=== PATIENT | female | born 1980 | race Caucasian/White ===

== ENCOUNTER 2016-12-25 07:40 | Emergency (ER) | payer BC ==
[2016-12-25 07:58] VITALS: BP 117/74
--- NOTE | 2016-12-25 08:42 | UC ---
Complaint Female HPI - HPI Summary HPI Summary: 36 yo female with vaginal d/c and itch ungoing IVF mild dysuria - History Of Current Complaint Chief Complaint: UCGU Stated Complaint: UTI SYMPTOMS Time Seen by Provider: 12/25/16 08:14 Hx Obtained From: Patient Hx Last Menstrual Period: november- going though ivf, transfer done already Onset/Duration: Gradual Onset, Lasting Days Timing: Constant Severity Initially: Mild Severity Currently: Mild Pain Intensity: 1 Pain Scale Used: 0-10 Numeric Character: Not Applicable Aggravating Factor(s): Urination Associated Signs And Symptoms: Positive: Vaginal Discharge - Allergies/Home Medications Allergies/Adverse Reactions: Allergies Allergy/AdvReac Type Severity Reaction Status Date / Time No Known Drug Allergy Allergy Unknown Verified 02/15/16 10:18 Reaction Details Home Medications: Home Medications Aspirin [Aspirin 81 MG TAB] 81 mg PO DAILY 12/25/16 [History Confirmed 12/25/16] Cholecalciferol [Vitamin D] 1,000 PO DAILY 12/25/16 [History] Estradiol [Estrace] 2 mg DAILY 12/25/16 [History Confirmed 12/25/16] Progesterone SUPP (NF) [Endometrin SUPP (NF)] 100 mg DAILY 12/25/16 [History Confirmed 12/25/16] Progesterone* [Progesterone in Oil*] 50 mg DAILY 12/25/16 [History Confirmed ] Tacrolimus CAP(*) [Prograf CAP(*)] 0.5 mg PO DAILY 12/25/16 [History Confirmed 12/25/16] predniSONE TAB* [Deltasone TAB*] 5 mg PO DAILY 12/25/16 [History Confirmed 12/25] PMH/Surg Hx/FS Hx/Imm Hx Previously Healthy: Yes Respiratory History Of: Reports: Bronchitis - Hx OF CHILD NUMEROUS EPISODES GI/ History Of: Denies: Ulcer Neurological History Of: Reports: Migraine - WITH HEAVY EXERCISE, LAST WAS 2015 Psychological History Of: Denies: Anxiety, Depression - Surgical History Surgical History: Yes Surgery Procedure, Year, and Place: 1985 tonsils removedage. 2007 Uvula removed for sleep apnea [place] - Family History Known Family History: Negative: Cardiac Disease, Hypertension, Diabetes - Social History Alcohol Use: None Alcohol Amount: 2-3 glasses wine/beer a week Substance Use Type: None Smoking Status (MU): Never Smoked Tobacco Have You Smoked in the Last Year: No - Immunization History Most Recent Influenza Vaccination: not this year Most Recent Tetanus Shot: UTD Review of Systems Constitutional: Negative Skin: Negative Eyes: Negative ENT: Negative Respiratory: Negative Cardiovascular: Negative Gastrointestinal: Negative Genitourinary: Dysuria, Frequency Motor: Negative Neurovascular: Negative Musculoskeletal: Negative Neurological: Negative Psychological: Negative All Other Systems Reviewed And Are Negative: Yes Physical Exam Triage Information Reviewed: Yes Appearance: Well-Appearing, No Pain Distress, Well-Nourished Vital Signs: Initial Vital Signs Temp 99.4 F 12/25/16 07:52 Pulse 96 12/25/16 07:52 Resp 16 12/25/16 07:52 BP 117/74 12/25/16 07:52 Pulse Ox 98 12/25/16 07:52 Eyes: Positive: Conjunctiva Clear ENT: Positive: Hearing grossly normal. Negative: Nasal congestion, Nasal drainage, Trismus, Muffled/hoarse voice Neck: Positive: Supple, Nontender Respiratory: Positive: Lungs clear, Normal breath sounds, No respiratory distress Cardiovascular: Positive: RRR, No Murmur Abdomen Description: Positive: No Organomegaly, Soft. Negative: CVA Tenderness (R), CVA Tenderness (L) Musculoskeletal: Positive: ROM Intact, No Edema Neurological: Positive: Alert, Muscle Tone Normal Skin Exam: Normal Complaint Female Dx - Differential Dx/Diagnosis Provider Diagnoses: vaginitis Discharge - Discharge Plan Condition: Stable Disposition: HOME Patient Education Materials: Vaginitis (ED) Referrals: Michael Rivas MD [Primary Care Provider] - Additional Instructions: I suspect a yeast infection a urine culture is pending (takes a couple of days) tests on vaginal d/c are pending will hold off on any meds until we get results
--- NOTE | 2016-12-26 17:58 | UC ---
Progress - Progress Note Progress Note: PLEASE CALL Pt AND INFORM HER OF TEST POSITIVE FOR VAGINAL CANDIDIASIS. CLOTRIMAZOLE 1% VAGINAL CREAM, ONE APPLICATOR FULL PER VAGINA INSERTED Q X 7 DAYS SENT. HOWEVER, IT IS VERY IMPORTANT THAT PT FOLLOW UP WITH THE PHYSICIAN WHO PRESCRIBES TACROLIMUS TODAY. TO INFORM THAT PHYSICIAN THAT SHE WAS PRESCRIBED CLOTRIMAZOLE IT CAN LEAD TO DANGEROUS ELEVATION OF BLOOD LEVELS OF TACROLIMUS. IT MAY THEREFORE NEED TO BE MONITORED. THIS WAS DISCUSSED WITH YASMEEN, FROM HER PHARMACY. See Dr. Waters note.
== END 2016-12-25 08:56 | disposition home or self-care (01) ==
LOC: UCEAST 07:40
DX: B37.3 Candidiasis of vulva and vagina (principal)
CPT/HCPCS: 81003; 84702; 87086; 87480; 87510; 87660; 99211; G0463

== ENCOUNTER 2017-08-29 08:38 | Inpatient (IN) | payer BC ==
[~2017-08-29 08:38] MED LIST: Buffered Lidocaine 0.9% SYRIN* 5 ML/SYR SYRINGE INTRADERM ONE; Famotidine IV* 10 MG/ML 2 ML (20 mg) IV ONE
[2017-08-29] MEDS ORDERED: Famotidine IV* 10 MG/ML 2 ML (20 mg) ONE (10:16)
[2017-08-29] MEDS ORDERED: fentaNYL* 50 MCG/ML 2 ML VIAL (100 MCG VIAL) ONE (10:42)
[2017-08-29] MEDS ORDERED: KETAMINE HCL* 50 MG/ML 10 ML VIAL ONE (10:42)
[2017-08-29] MEDS ORDERED: Midazolam* 1 MG/ML 5 ML VIAL (5 MG) ONE (10:42)
[2017-08-29] MEDS ORDERED: Morphine PF AMP (0.5MG/ML)* 5 MG/10 ML AMP ONE (10:42)
[2017-08-29] MEDS ORDERED: ceFAZolin 2 GM PREMIX (*) 2 GM/50 ML BAG IVPB ONE (10:59)
[2017-08-29] MEDS ORDERED: PROCHLORPERAZINE INJ 5 MG/ML 2 ML VIAL IV PRN (11:22)
[2017-08-29] MEDS ORDERED: Scopolamine PATCH Remove* 1 NOTE MISC PATCH OFF PRN (11:22)
[2017-08-29] MEDS ORDERED: oxyCODONE/Acetamin 5/325 MG* TAB PO PRN (11:22)
[2017-08-29] MEDS ORDERED: DiMENhydriNATE IV* 50 MG/ML VIAL IV PUSH PRN (11:22)
[2017-08-29] MEDS ORDERED: diPHENhydraMINE IV* 50 MG/ML 1 ml VIAL (BENADRYL) IV PRN (11:22)
[2017-08-29] MEDS ORDERED: Scopolamine 1.5 mg* PATCH TRANSDERM PRN (11:22)
[2017-08-29] MEDS ORDERED: Ondansetron INJ* 2 MG/ML VIAL IV PRN (11:22)
[2017-08-29] MEDS ORDERED: Naloxone* 2 MG in NS 0.9% 250 ML* 250 ML IV PRN (11:22)
[2017-08-29] MEDS ORDERED: Nalbuphine* 20 MG/ML 1 ML VIAL IV PRN (11:22)
[2017-08-29] MEDS ORDERED: Naloxone* 0.4 MG/ML 1 ML VIAL IV PRN ×2 (11:22→11:24)
[2017-08-29] MEDS ORDERED: fentaNYL* 50 MCG/ML 2 ML VIAL (100 MCG VIAL) IV PRN (11:24)
[2017-08-29] MEDS ORDERED: EPHEDrine (Pressors)* 50 MG/ML VIAL ONE (12:08)
[2017-08-29] MEDS ORDERED: Ondansetron INJ* 2 MG/ML VIAL ONE (12:08)
[2017-08-29] MEDS ORDERED: Ketorolac INJ* 30 MG/ML 1 ML VIAL ONE (12:08)
[2017-08-29] MEDS ORDERED: Scopolamine 1.5 mg* PATCH ONE (12:08)
[2017-08-29] MEDS ORDERED: Dexamethasone IV* 4 MG/ML 1 ML (4 MG) ONE (12:08)
[2017-08-29] MEDS ORDERED: Phenylephrine INJ* 10 MG/ML 1 ML VIAL (10 MG) ONE (12:09)
[2017-08-29] MEDS: Ibuprofen TAB* 600 MG PO SCH ×2 (12:50→18:11)
[2017-08-29] MEDS ORDERED: Glycerin ADULT SUPP PR PRN (13:09)
[2017-08-29] MEDS ORDERED: Zolpidem TAB* 5 MG PO PRN (13:09)
[2017-08-29] MEDS ORDERED: Witch Hazel PAD* JAR TOPICAL PRN (13:09)
[2017-08-29] MEDS ORDERED: Dibucaine 1% 28.35 GM TUBE PR PRN (13:09)
[2017-08-29] MEDS: Simethicone TAB* 80 MG TAB.CHEW PO SCH ×2 (18:11→20:03)
[2017-08-29] MEDS: Docusate CAP* 100 MG PO SCH ×2 (18:12→20:03)
[2017-08-30] MEDS: Ibuprofen TAB* 600 MG PO SCH (00:13)
--- NOTE | 2017-08-30 00:32 | OP ---
DATE OF OPERATION: 08/29/17 - ROOM #115 DATE OF : 82 SURGEON: Lachelle Clark MD JOB CHANGE CREW MEMBER: Zuri Brody MD ANESTHESIOLOGIST: Kaden Malcolm MD ANESTHESIA: Spinal. PRE-OP DIAGNOSES: Intrauterine gestation at 39 and 1 weeks gestational age, prior myomectomy and extensive scarring from endometriosis, breech presentation. POST-OP DIAGNOSES: Intrauterine gestation at 39 and 1 weeks gestational age, prior myomectomy and extensive scarring from endometriosis, breech presentation. OPERATIVE PROCEDURE: Primary low transverse section. ESTIMATED BLOOD LOSS: 800 mL. FLUIDS: Crystalloid. COMPLICATIONS: None. COUNTS: Correct. FINDINGS: Male infant. Apgars 9 and 9, weight 7 pounds 7 ounces. Normal- appearing placenta. 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 Only minimal scarring and abdominal cavity. DESCRIPTION OF PROCEDURE: After informed consent was signed, the patient was taken to the operating room where she was given spinal anesthesia that was found to be adequate. A Felix catheter was introduced into her bladder and SCDs were placed on her legs. She was prepped and draped in the dorsal supine position with a leftward tilt. Time-out was performed. A Pfannenstiel skin incision was made with the scalpel along the levels of her prior scar from her laparoscopy in the past per the patient's request. This incision was carried down to the underlying layer of fascia with the scalpel. The fascia was incised on either side of the midline and the fascial incision extended laterally with the Guajardo scissors. The inferior edge of the fascial incision was grasped with Gris clamps, tented up and dissected down with a combination of sharp and blunt dissection. Then, the superior edge of the incision was grasped with Gris clamps, tented up and dissected down with a combination of sharp and blunt dissection. The rectus muscles were in the midline and the peritoneum was entered with blunt dissection. The incision was extended with sharp dissection. Good visualization of the lower uterine segment was noted without scarring of the bladder. Transverse incision was then made with the scalpel and extended superiorly and inferiorly with blunt pressure. The infant was in breech presentation. The feet were grasped and brought through the hysterotomy. The amniotic sac was ruptured with clear fluid. The feet were then delivered followed by the buttocks, the torso. The arms were delivered with internal rotation and the head was delivered in a flex position. The cord was milked towards the baby for over 30 seconds and was then clamped x2 and cut and the baby was handed to the certified coding specialist. Cord blood was collected. The placenta was then delivered with fundal massage and gentle cord traction. The uterus was cleared of clots and debris. The uterus was then exteriorized and the uterine incision was closed with 0 Vicryl in a running locked fashion with the second layer of suture imbricating the first. The incision was inspected and noted to have good hemostasis. Some clots were cleared out of the abdominal cavity and the peritoneal cavity was irrigated with good hemostasis noted. The peritoneum was closed with 3- 0 Vicryl in a running unlocked fashion. The fascia was closed with 0 Vicryl in a running unlocked fashion. Three interrupted sutures of 0 Vicryl were placed in the subcuticular layer to reapproximate it and the scar from her prior laparoscopy incision was removed in an elliptical fashion. The skin was then reapproximated with 4-0 Monocryl in a running subcuticular fashion. Mastisol and Steri-Strips were placed. Dressing was then placed. The patient was cleaned, moved to the stretcher and taken to the recovery room in stable condition. [id number]/[facility] #: [id number] JEANINE
[2017-08-30] MEDS ORDERED: oxyCODONE/Acetamin 5/325 MG* TAB PO PRN ×2 (03:00)
[2017-08-30] MEDS: Ibuprofen TAB* 600 MG PO PRN ×3 (07:17→21:43)
[2017-08-30] MEDS: Docusate CAP* 100 MG PO SCH ×3 (08:24→19:55)
[2017-08-30] MEDS: Simethicone TAB* 80 MG TAB.CHEW PO SCH ×4 (08:24→19:55)
[2017-08-30] MEDS ORDERED: Ferrous Gluconate TAB* 324 MG TAB PO SCH (09:00)
[2017-08-30 09:05] LABS: ABS Basophils 0.1 10^3/ul (0-0.2); ABS Eosinophils 0 10^3/ul (0-0.6); ABS Lymphocytes 1.4 10^3/ul (1.0-4.8); ABS Monocytes 1.2 10^3/ul (0-0.8); ABS Neutrophils 14.1 10^3/ul (1.5-7.7); ABS Nucleated RBC 0 10^3/ul; Eosinophil % 0.1 % (0-6); Hematocrit 31 % (35-47); Hemoglobin 10.4 g/dl (12.0-16.0); Lymphocyte % 8.5 % (25-47); Mean Corpuscular HGB Conc 34 g/dl (31-36); Mean Corpuscular Hemoglobin 29 pg (27-31); Mean Corpuscular Volume 85 fL (80-97); Mean Platelet Volume 9 um3 (7.4-10.4); Nucleated Red Blood Cells % 0; Platelet Count 199 10^3/ul (150-450); Red Blood Count 3.61 10^6/ul (4.0-5.4); Red Cell Distribution Width 13 % (10.5-15); White Blood Count 16.8 10^3/ul (3.5-10.8)
[2017-08-30] MEDS: Acetaminophen TAB* 325 MG PO PRN (18:18)
[2017-08-31] MEDS: Ibuprofen TAB* 600 MG PO PRN ×3 (05:10→18:21)
[2017-08-31] MEDS: Acetaminophen TAB* 325 MG PO PRN ×2 (05:12→11:54)
[2017-08-31] MEDS: Docusate CAP* 100 MG PO SCH ×3 (08:59→20:52)
[2017-08-31] MEDS: Simethicone TAB* 80 MG TAB.CHEW PO SCH ×4 (08:59→20:52)
[2017-08-31 19:48] VITALS: BP 102/53
[2017-09-01] MEDS: Ibuprofen TAB* 600 MG PO PRN ×2 (00:18→06:16)
[2017-09-01] MEDS: Docusate CAP* 100 MG PO SCH (09:21)
[2017-09-01] MEDS: Simethicone TAB* 80 MG TAB.CHEW PO SCH (09:21)
== END 2017-09-01 12:15 | disposition home or self-care (01) | DRG 540 ==
LOC: MCHOB 08:38
PROVIDERS: ADMIT Obstetrics & Gynecology; ATTEND Obstetrics & Gynecology
PROC: 10D00Z1 Extraction of Products of Conception, Low, Open Approach (ICD-10-PCS; principal; 2017-08-29 10:30)
DX: O32.1XX0 Maternal care for breech presentation, not applicable or unspecified (principal); N80.9 Endometriosis, unspecified; O34.03 Maternal care for unspecified congenital malformation of uterus, third trimester; Q51.4 Unicornate uterus; O99.824 Streptococcus B carrier state complicating childbirth; Z3A.39 39 weeks gestation of pregnancy; Z37.0 Single live birth
CPT/HCPCS: 36415; 85025; A9270-GY; J0690; J1100; J1885; J2250; J2405; J3010

== ENCOUNTER 2018-01-01 16:32 | Emergency (ER) | payer BC ==
[2018-01-01 16:54] VITALS: BP 118/71
--- NOTE | 2018-01-01 16:59 | UC ---
Respiratory Complaint HPI - HPI Summary HPI Summary: 37 y/o female presents to the urgent care c/o dry cough, nasal congestion w/ yellowish nasal discharge and +PND for the past week. Pt reports AMADOR and sinus pain w/ B/L ear blocked since today. Pt has taken Robitussin PO to alleviate symptoms w/o any improvement. Seh has low grade fever the first 2 days of symptoms. Pt denies fever now, SOB, chest pain, abdominal pain, N/V/D - History of Current Complaint Chief Complaint: UCRespiratory Stated Complaint: URI Time Seen by Provider: 01/01/18 16:57 Hx Obtained From: Patient Hx Last Menstrual Period: November 2016 Onset/Duration: Gradual Onset, Lasting Weeks - 1 week Timing: Constant Severity Initially: Mild Severity Currently: Moderate Pain Intensity: 2 Pain Scale Used: 0-10 Numeric Character: Cough: Nonproductive Aggravating Factors: Recumbent Position Alleviating Factors: OTC Meds Associated Signs And Symptoms: Positive: URI, Nasal Congestion, Sinus Discomfort. Negative: Fever - Risk Factors Pulmonary Embolism Risk Factors: Negative Cardiac Risk Factors: Negative Pseudomonas Risk Factors: Negative Tuberculosis Risk Factors: Negative - Allergies/Home Medications Allergies/Adverse Reactions: Allergies Allergy/AdvReac Type Severity Reaction Status Date / Time lactose Allergy Diarrhea Verified 01/01/18 16:54 PMH/Surg Hx/FS Hx/Imm Hx Previously Healthy: Yes Respiratory History: Bronchitis - Surgical History Surgical History: Yes Surgery Procedure, Year, and Place: 1985 tonsils removedage. 2007 Uvula removed for sleep apnea [facility]. 2016 - Family History Known Family History: Positive: Hypertension Negative: Cardiac Disease, Diabetes - Social History Occupation: Employed Full-time Lives: With Family Alcohol Use: None Alcohol Amount: 2-3 glasses wine/beer a week Substance Use Type: None Smoking Status (MU): Never Smoked Tobacco Have You Smoked in the Last Year: No - Immunization History Most Recent Influenza Vaccination: 04/2017 Most Recent Tetanus Shot: UTD Most Recent Pneumonia Vaccination: unsure Review of Systems Constitutional: Negative Skin: Negative Eyes: Negative ENT: Nasal Discharge, Sinus Congestion, Sinus Pain/Tenderness Respiratory: Cough - dry Cardiovascular: Negative Gastrointestinal: Negative Genitourinary: Negative Motor: Negative Neurovascular: Negative Musculoskeletal: Negative Neurological: Headache Psychological: Negative Is Patient Immunocompromised?: No All Other Systems Reviewed And Are Negative: Yes Physical Exam - Summary Physical Exam Summary: Vitals: reviewed General: Well developed, well-nourished female patient with NAD. Head and face: Normocephalic and atraumatic, Positive tenderness over the frontal and maxillary sinuses.. Eyes: PERRLA, EOMI x 2. Normal conjunctiva. No eye discharge. ENT: Ears and TM with normal limits. Nose: edematous and erythematous nasal mucosa with with yellowish discharge and erythematous mucosa. Pharynx with erythema, no exudate.+PND yellowish Neck: Supple, no JVD, no carotid bruits and no lymphadenopathy. Lungs: clear, no rales, no rhonchi, no wheezes. CVS: RRR, S1 and S2 present no murmurs or gallops appreciated. Abdomen: soft nontender with positive bowel sounds. Extremities: no edema noted. Neuro: WNL. Skin: warm and dry Triage Information Reviewed: Yes Vital Signs: Initial Vital Signs Temp 98.6 F 01/01/18 16:51 Pulse 102 01/01/18 16:51 Resp 18 01/01/18 16:51 BP 118/71 01/01/18 16:51 Pulse Ox 100 01/01/18 16:51 UC Diagnostic Evaluation - Laboratory O2 Sat by Pulse Oximetry: 100 Respiratory Course/Dx - Course Course Of Treatment: 37 y/o female presents to the urgent care c/o dry cough, nasal congestion w/ yellowish nasal discharge and +PND for the past week. Pt reports AMADOR and sinus pain w/ B/L ear blocked since today. Pt has taken Robitussin PO to alleviate symptoms w/o any improvement. Seh has low grade fever the first 2 days of symptoms. Pt denies fever now, SOB, chest pain, abdominal pain, N/V/D. Hx obtained. Pt with 1 week of symptoms getting worse. Pt Rx Amoxicillin PO and flonase nasal spray. Discharge instructions explained to Pt. Advised to Return to the clinic or PCP if symptoms do not improve.Pt understood and agreed with plan of care. - Differential Dx/Diagnosis Differential Diagnosis/HQI/PQRI: Asthma, Bronchitis, Influenza, Laryngitis, Sinusitis Provider Diagnoses: 1- Acute bacterial sinusitis Discharge - Sign-Out/Discharge Documenting (check all that apply): Discharge/Admit/Transfer - D/c home - Discharge Plan Condition: Stable Disposition: HOME Prescriptions: Amoxicillin PO (*) [Amoxicillin 875 MG (*)] 875 mg PO BID #20 tab Fluticasone NASAL SPRAY 50MCG* [Flonase NASAL SPRAY 50MCG*] 2 spray BOTH NARES DAILY #1 btl Patient Education Materials: Sinusitis (ED) Referrals: Michael Rivas MD [Primary Care Provider] - 3 Days Additional Instructions: 1- Please increase fluid intake and rest. take full course of antibiotic to avoid resistance 2-Use Flonase as directed to help drain fluid. Also buy saline drops to clear sinuses 3-Take Tylenol PO to alleviates headache 4-Return to the clinic or PCP if symptoms do not improve for further management and treatment - Billing Disposition and Condition Condition: STABLE Disposition: HOME
== END 2018-01-01 17:17 | disposition home or self-care (01) ==
LOC: UCEAST 16:32
DX: J01.90 Acute sinusitis, unspecified (principal); B96.89 Other specified bacterial agents as the cause of diseases classified elsewhere; Z91.011 Allergy to milk products
CPT/HCPCS: 99212; G0463

== ENCOUNTER 2018-03-25 07:45 | Emergency (ER) | payer BC ==
[2018-03-25 07:57] VITALS: BP 132/85
--- NOTE | 2018-03-25 08:34 | UC ---
Eye Complaint HPI - HPI Summary HPI Summary: DEVELOPED BILATERAL EYE REDNESS AND IRRITATION YESTERDAY. LEFT EYE WORSE THAN RIGHT. WOKE UP THIS MORNING WITH SOME CRUSTING. NO URI SYMPTOMS OR FEVER. NO VISUAL DISTURBANCE, HEADACHE, NAUSEA. DOES NOT WEAR CONTACT LENSES. - History of Current Complaint Chief Complaint: UCEye Stated Complaint: EYE ISSUE Time Seen by Provider: 03/25/18 08:06 Hx Obtained From: Patient Hx Last Menstrual Period: nursing Onset/Duration: Gradual Onset, Lasting Hours, Still Present Timing: Constant Severity Initially: Mild Severity Currently: Moderate Pain Intensity: 3 Pain Scale Used: 0-10 Numeric Location of Injury: Conjunctiva Aggravating Factor(s): Nothing Alleviating Factor(s): Nothing Associated Signs And Symptoms: Positive: Drainage (Clear). Negative: Photophobia, Vision Impairment Bilateral, Fever - Allergies/Home Medications Allergies/Adverse Reactions: Allergies Allergy/AdvReac Type Severity Reaction Status Date / Time lactose Allergy Diarrhea Verified 03/25/18 07:57 PMH/Surg Hx/FS Hx/Imm Hx Previously Healthy: Yes - Surgical History Surgical History: Yes Surgery Procedure, Year, and Place: 1985 tonsils removedage. 2007 Uvula removed for sleep apnea [facility]. 2016 - Family History Known Family History: Positive: Hypertension Negative: Cardiac Disease, Diabetes - Social History Alcohol Use: Rare Alcohol Amount: 2-3 glasses wine/beer a week Substance Use Type: None Smoking Status (MU): Never Smoked Tobacco Have You Smoked in the Last Year: No - Immunization History Most Recent Influenza Vaccination: 04/2017 Most Recent Tetanus Shot: UTD Most Recent Pneumonia Vaccination: unsure Review of Systems Constitutional: Negative Eyes: Drainage, Eye Redness ENT: Negative Respiratory: Negative Cardiovascular: Negative Gastrointestinal: Negative All Other Systems Reviewed And Are Negative: Yes Physical Exam Triage Information Reviewed: Yes Appearance: Well-Appearing, No Pain Distress, Well-Nourished Vital Signs: Initial Vital Signs Temp 97.6 F 03/25/18 07:53 Pulse 89 03/25/18 07:53 Resp 18 03/25/18 07:53 BP 132/85 03/25/18 07:53 Pulse Ox 99 03/25/18 07:53 Vital Signs Reviewed: Yes Eyes: Positive: Conjunctiva Inflamed - left > right, Discharge - clear, Other: - PERRL, EOMI ENT: Positive: Hearing grossly normal Neck: Positive: Supple Respiratory: Positive: No respiratory distress, No accessory muscle use Cardiovascular: Positive: Pulses Normal Abdomen Description: Positive: Soft Musculoskeletal: Positive: No Edema Neurological: Positive: Alert Psychological: Positive: Age Appropriate Behavior Skin: Negative: rashes Eye Complaint Course/Dx - Differential Dx/Diagnosis Provider Diagnoses: BILATERAL CONJUNCTIVITIS Discharge - Sign-Out/Discharge Documenting (check all that apply): Patient Departure - Discharge Plan Condition: Stable Disposition: HOME Prescriptions: Ciprofloxacin 0.3% OPTH.MAX* [Cipro 0.3% Opth*] 1 drop BOTH EYES Q4H #1 btl Patient Education Materials: Conjunctivitis (ED) Referrals: Michael Rivas MD [Primary Care Provider] - If Needed - Billing Disposition and Condition Condition: STABLE Disposition: Home
== END 2018-03-25 08:31 | disposition home or self-care (01) ==
LOC: UCEAST 07:45
DX: H10.33 Unspecified acute conjunctivitis, bilateral (principal)
CPT/HCPCS: 99211; G0463